=== PATIENT | female | born 1965 | race Caucasian/White ===

== ENCOUNTER 2017-03-06 12:38 | Observation (INO) | payer OTHER ==
[~2017-03-06] VITALS: Ht 157.5 cm; Wt 77.4 kg
[~2017-03-06 12:38] MED LIST: ASPIR 8181 M1 PO; CELEXA10 MG PO; NAPROSYN500 MG PO; NORCO 5/3251 TABLET PO; PRILOSEC20 MG PO; XANAX0.125 MG PO
[2017-03-06 13:59] LABS: HEMATOCRIT 39.3 % (36.0-46.0); MCH 26.8 PG (29.0-34.0); MCHC 32.1 G/DL (30.0-36.0); MCV 83.6 FL (83-99); MEAN PLAT.VOLUME 10.2 uM^3 (9.5-12.4); PLATELET COUNT 274 K/uL (156-360); RBC DIS.WIDTH-CV 14.6 % (11.8-14.6); RBC DIS.WIDTH-SD 43.8 % (39-53)
[2017-03-06 14:09] LABS: CHLORIDE 106 mEq/L (99-109); POTASSIUM 3.6 mEq/L (3.7-5.4); SODIUM 139 mEq/L (136-147)
[2017-03-06 14:10] LABS: GLUCOSE 96 mg/dL (70-99)
[2017-03-06 14:12] LABS: ANION GAP 8 MEQ/L (2-14)
[2017-03-06 14:14] LABS: GFR ESTIMATE (CALCULATED) > 59 mL/min/
[2017-03-06 14:15] LABS: UREA NITROGEN (BUN) 10 mg/dL (9-23)
[2017-03-06 14:22] LABS: TROP-I INTERPRETATION NEGATIVE; TROPONIN-I < 0.01 ng/mL (0.0-0.30)
[2017-03-06] MEDS ORDERED: ASPIR-LOW81 MG PO (15:54)
[2017-03-06] MEDS ORDERED: PROAIR HFA8.5 GM IH (15:55)
[2017-03-06] MEDS ORDERED: CARDIZEM CD,CA180 MG PO (15:55)
[2017-03-06] MEDS ORDERED: CETIRIZINE HCL10 M2 PO (15:55)
[2017-03-06] MEDS ORDERED: ADVAIR HFA120 INHAL1 IH (15:56)
[2017-03-06] MEDS ORDERED: ATORVASTATIN CA20 MG PO (15:56)
[2017-03-06] MEDS ORDERED: BUSPAR15 MG PO (15:56)
[2017-03-06] MEDS ORDERED: DESYREL 150 MG150 MG PO (15:57)
[2017-03-06] MEDS ORDERED: ESCITALOPRAM OX20 MG PO (15:57)
[2017-03-06 17:35] LABS: HDL CHOLESTEROL 47 MG/DL (Desirable>=50); LDL CHOLESTEROL 105 mg/dL (Desirable<100); NON-HDL CHOLESTEROL 145 mg/dL (Desirable<160); TOTAL CHOLESTEROL 192 mg/dL (Desirable<200); TRIGLYCERIDES 201 MG/DL (Normal: <150)
[2017-03-06 17:39] VITALS: BP 115/65
[2017-03-06 19:37] VITALS: BP 117/60
[2017-03-06 20:48] LABS: Estimated Average Glucose 120 mg/dL (70-123); HEMOGLOBIN A1c (GLYCOHEMOGLOB) 5.8 % HGB (Below 5.7)
[2017-03-06 20:52] LABS: TROP-I INTERPRETATION NEGATIVE; TROPONIN-I < 0.01 ng/mL (0.0-0.30)
[2017-03-07 00:25] VITALS: BP 108/56
[2017-03-07 03:01] LABS: CHLORIDE 104 mEq/L (99-109); POTASSIUM 3.5 mEq/L (3.7-5.4); SODIUM 138 mEq/L (136-147)
[2017-03-07 03:03] LABS: GLUCOSE 122 mg/dL (70-99)
[2017-03-07 03:04] LABS: ANION GAP 10 MEQ/L (2-14)
[2017-03-07 03:06] LABS: GFR ESTIMATE (CALCULATED) > 59 mL/min/
[2017-03-07 03:07] LABS: UREA NITROGEN (BUN) 12 mg/dL (9-23)
[2017-03-07 03:12] LABS: TROP-I INTERPRETATION NEGATIVE; TROPONIN-I < 0.01 ng/mL (0.0-0.30)
[2017-03-07 06:42] VITALS: BP 91/53
[2017-03-07 11:45] VITALS: BP 95/54
[2017-03-07 11:48] VITALS: BP 87/50
== END 2017-03-07 14:35 | disposition home or self-care (01) ==
LOC: EME 12:38 → 5WEST 16:24 → EDOF 16:24 → 5WEST 17:23
PROVIDERS: Internal Medicine
DX: R07.89 Other chest pain (principal); R60.0 Localized edema; I34.0 Nonrheumatic mitral (valve) insufficiency; E78.5 Hyperlipidemia, unspecified; J45.909 Unspecified asthma, uncomplicated; F41.9 Anxiety disorder, unspecified; R06.02 Shortness of breath; R63.5 Abnormal weight gain
CPT/HCPCS: 71020; 80048; 80061; 83036; 83880; 84443; 84484; 85027; 93005; 93306; 94640; 94640 76; 99202; 99281; 99285; G0378; J1650; J1940